=== PATIENT | female | born 1975 | race Caucasian/White ===

== ENCOUNTER → 2017-08-01 | Outpatient (REF) | payer BC, OTHER | LOC: M SFHCADAM 13:32 | PROVIDERS: ATTEND Physician Assistant | DX: Z12.4 Encounter for screening for malignant neoplasm of cervix (principal) ==

== ENCOUNTER → 2020-01-10 | Outpatient (REF) | payer BC | LOC: M SFHCADAM 16:32 | PROVIDERS: ATTEND Physician Assistant | DX: Z12.4 Encounter for screening for malignant neoplasm of cervix (principal) | CPT/HCPCS: 87624; G0123 ==

== ENCOUNTER 2020-05-25 13:12 | Emergency (ER) | payer OTHER, BC ==
[~2020-05-25] VITALS: Ht 167.6 cm; Wt 70.5 kg
[2020-05-25] MEDS ORDERED: NORG1TAB33 (13:25)
[2020-05-25] MEDS ORDERED: ACETAMINOPHEN 500 MG TAB PO ONE (14:00)
[2020-05-25] MEDS ORDERED: BOOSTRIX/ADACEL VACCINE (DIPHTH/PERTUSS/ACELL/TETANUS) 0.5ML SYR IM ONE (14:00)
[2020-05-25] MEDS ORDERED: ISOVUE-370 76% 100ML VIAL As Ordered ONE (14:30)
[2020-05-25 15:21] LABS: BASO # 0.1 10^3/uL (0.0-0.2); BASO % 0.4 % (0.0-1.0); EOS % 0.1 % (0.0-3.0); HEMATOCRIT 41.6 % (36.0-47.0); HEMOGLOBIN 13.5 g/dl (12.0-15.5); LYMPH # 1.4 10^3/uL (1.5-5.0); LYMPH % 9.6 % (24.0-44.0); MEAN CORPUSCULAR HGB CONC 32.5 g/dl (32.0-36.5); MEAN CORPUSCULAR VOLUME 89.5 fl (80.0-96.0); MONO # 0.8 10^3/uL (0.0-0.8); MONO % 5.5 % (0.0-5.0); NEUTROPHILS # 11.8 10^3/uL (1.5-8.5); NEUTROPHILS % 83.8 % (36.0-66.0); PLATELET COUNT, AUTOMATED 307 10^3/uL (150-450); RED BLOOD COUNT 4.65 10^6/uL (4.00-5.40)
[2020-05-25 15:37] LABS: ALBUMIN 3.6 GM/DL (3.2-5.2); ALT/SGPT 33 U/L (12-78); BILIRUBIN,DIRECT 0.1 MG/DL (0.0-0.2); BILIRUBIN,TOTAL 0.3 MG/DL (0.2-1.0); LIPASE 152 U/L (73-393); TOTAL PROTEIN 6.8 GM/DL (6.4-8.2)
[2020-05-25] MEDS ORDERED: MORPHINE 4 MG/ML 1ML VIAL/SYRINGE (J2270) IV ONE (15:45)
[2020-05-25] MEDS ORDERED: ONDANSETRON 4MG/2ML VIAL IV ONE (15:45)
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
[2020-05-25 16:54] LABS: CK-MB VALUE MASS 1.9 NG/ML (<3.6); CPK CREATINE PHOSPHOKINASE 124 U/L (26-192); MB/CK RELATIVE INDEX 1.53 (< OR =4); TROPONIN I < 0.02 NG/ML (< 0.10)
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
[2020-05-25] MEDS ORDERED: MACR100C43 PO (18:57)
[2020-05-25 19:09] VITALS: BP 111/67
[2020-05-25] MEDS ORDERED: NITROFURANTOIN (MACROBID) 100 MG CAP PO ONE (19:15)
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
--- NOTE | 2020-06-01 11:25 | ECGEPIP ---
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
== END 2020-05-25 19:14 | disposition home or self-care (01) ==
LOC: M ED 13:12
DX: S80.01XA Contusion of right knee, initial encounter (principal); S20.219A Contusion of unspecified front wall of thorax, initial encounter; V43.52XA Car driver injured in collision with other type car in traffic accident, initial encounter; Y92.410 Unspecified street and highway as the place of occurrence of the external cause; N39.0 Urinary tract infection, site not specified; N83.201 Unspecified ovarian cyst, right side; Z79.3 Long term (current) use of hormonal contraceptives
CPT/HCPCS: 36415; 70450; 71260; 72125; 73564; 74177; 80047; 80076; 81001; 82550; 82553; 83690; 84484; 84702; 85025; 87088; 87186; 90471; 90715; 93005; 96374; 96375; 99284; J2270; J2405; Q9967

== ENCOUNTER → 2020-05-28 | Outpatient (REF) | payer BC, OTHER ==
[~2020-05-28] MED LIST: MACR100C43 PO; NORG1TAB33
== END ==
LOC: M SFHCADAM 17:43
PROVIDERS: ATTEND Physician Assistant
DX: N83.9 Noninflammatory disorder of ovary, fallopian tube and broad ligament, unspecified (principal)

== ENCOUNTER → 2020-06-30 | Outpatient (CLI) | payer BC, OTHER ==
[2020-06-30 14:45] LABS: CA 125 7.5 U/ML (<30.2)
== END ==
LOC: M WUC 09:05
PROVIDERS: ATTEND Obstetrics & Gynecology
DX: D39.11 Neoplasm of uncertain behavior of right ovary (principal)

== ENCOUNTER → 2023-08-03 | Outpatient (REF) | payer OTHER, MEDICAID ==
[2023-08-03 14:40] LABS: BLOOD UREA NITROGEN 8 MG/DL (9-23); CALCIUM LEVEL 8.6 MG/DL (8.5-10.1); CARBON DIOXIDE LEVEL 28 MMOL/L (20-31); CHLORIDE LEVEL 106 MMOL/L (98-107); CHOLESTEROL LEVEL 201 MG/DL (<200); CHOLESTEROL RISK RATIO 2.25 (<5); CREATININE FOR GFR 0.82 MG/DL (0.55-1.30); GLOMERULAR FILTRATION RATE > 60.0 (>58); GLUCOSE, FASTING 80 MG/DL (60-100); HDL CHOLESTEROL 89.3 MG/DL (>40); LDL CHOLESTEROL 98.5 MG/DL (<100); NON-HDL-C 111.7 MG/DL; POTASSIUM SERUM 4.4 MMOL/L (3.5-5.1); SODIUM LEVEL 140 MMOL/L (136-145); TRIGLYCERIDES LEVEL 66 MG/DL (<150)
== END ==
LOC: M SFHCADAM 10:04
PROVIDERS: ATTEND Physician Assistant
DX: Z13.220 Encounter for screening for lipoid disorders (principal); Z13.1 Encounter for screening for diabetes mellitus

== ENCOUNTER → 2023-08-15 | Outpatient (CLI) | payer OTHER | LOC: M WHC 11:06 | PROVIDERS: ATTEND Physician Assistant | DX: Z12.31 Encounter for screening mammogram for malignant neoplasm of breast (principal) ==

== ENCOUNTER 2023-11-16 08:52 | Day surgery (SDC) | payer OTHER ==
[~2023-11-16] VITALS: Ht 167.6 cm; Wt 67.8 kg
[~2023-11-16 08:52] MED LIST changes: -NORG1TAB33; +NORG1TAB33 PO
[2023-11-16] MEDS: NS 1,000 ML IV ONE (09:08)
[2023-11-16] MEDS ORDERED: propofoL 500 MG/50 ML VIAL As Ordered ONE (10:10)
[2023-11-16] MEDS ORDERED: LIDOCAINE 2% 100MG/5ML SDV (FOR ANES.) As Ordered ONE (10:10)
[2023-11-16] MEDS ORDERED: SIMETHICONE 40MG/0.6ML DROPS 30ML As Ordered ONE (10:19)
[2023-11-16 10:32] VITALS: TEMP 96.9
[2023-11-16 10:59] VITALS: BP 126/62; O2SAT 97
== END 2023-11-16 11:00 | disposition home or self-care (01) ==
LOC: M OPP 08:52
PROVIDERS: ATTEND Internal Medicine Gastroenterology
DX: Z12.11 Encounter for screening for malignant neoplasm of colon (principal); Z12.12 Encounter for screening for malignant neoplasm of rectum; K64.8 Other hemorrhoids; K64.4 Residual hemorrhoidal skin tags; Q43.8 Other specified congenital malformations of intestine